=== PATIENT | male | born 1980 | race Caucasian/White ===

== ENCOUNTER 2023-03-17 21:30 | Emergency (ER) | payer MEDICAID ==
[~2023-03-17] VITALS: Ht 175.3 cm; Wt 61.2 kg
[2023-03-17 21:34] VITALS: BP_SYST 138; PULSE 74; RESP 18; TEMP 98.2; O2SAT 97
[2023-03-17] MEDS ORDERED: MORPHINE 4 MG INJ. 4 MG/ML VIAL IM ONE (23:15)
[2023-03-17] MEDS ORDERED: HYDR-3927 PO (23:26)
[2023-03-17] MEDS ORDERED: IBUP-1971 PO (23:26)
[2023-03-18 00:32] VITALS: BP_SYST 139; PULSE 70; RESP 20; TEMP 98.1; O2SAT 97
== END 2023-03-18 00:32 | disposition home or self-care (01) ==
LOC: SED 21:30
DX: S52.591A Other fractures of lower end of right radius, initial encounter for closed fracture (principal); Z79.899 Other long term (current) drug therapy; V00.131A Fall from skateboard, initial encounter; Y93.51 Activity, roller skating (inline) and skateboarding; Y92.89 Other specified places as the place of occurrence of the external cause; Y99.8 Other external cause status
CPT/HCPCS: 99283; 29105; 73100; 96372; J2270